=== PATIENT | female | born 1955 | race Two or more races ===

== ENCOUNTER → 2025-03-16 | Outpatient (CLI) | payer MEDICARE, MEDICAID, SELFPAY ==
[2025-03-16 10:24] LABS: Cardiac Risk Estimate 3.1 RATIO (3.7-5.6); Cholesterol 169 mg/dL (132-200); HDL Cholesterol 55 mg/dL (40-60); LDL Cholesterol,Calculated 93 mg/dL (0-130); Triglycerides 107 mg/dL (30-150)
[2025-03-16 11:09] LABS: Glucose Estimated Average 120 mg/dL (80-131); Hemoglobin A1C 5.8 % Hgb (4.8-6.0)
[2025-03-16 11:14] LABS: Hepatitis C Antibody Non Reactive (Non React)
[2025-03-20 06:25] LABS: HIV Ag/Ab, 4th Gen NON-REACTIVE
== END | disposition home or self-care (01) ==
LOC: COPL 08:52
PROVIDERS: PCP Physician Assistant; Referring Provider Physician Assistant; Visit Provider Physician Assistant
DX: Z00.00 Encounter for general adult medical examination without abnormal findings (principal); E55.9 Vitamin D deficiency, unspecified; G43.909 Migraine, unspecified, not intractable, without status migrainosus; R42 Dizziness and giddiness; R73.03 Prediabetes; Z11.59 Encounter for screening for other viral diseases
CPT/HCPCS: 36415; 80061; 83036; 86803; 87389

== ENCOUNTER 2025-03-31 15:39 | Emergency (ER) | payer MEDICARE, MEDICAID, SELFPAY ==
--- NOTE | 2025-03-31 15:45 | EKG_ITS ---
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
[2025-03-31 16:04] VITALS: BP 145/87; PULSE 81; RESP 18; TEMP 37.1; O2SAT 97
--- NOTE | 2025-03-31 16:04 | XR_ITS ---
Examination: CT brain head without contrast. 2-D sagittal coronal reconstructions Date and time of exam: 03/31/2025 at 4:51 p.m. CTDI: vol (mGy): 47 point DLP: (mGycm): 960 Technique: Multiple CT axial sections of the brain have been obtained, 5 mm slice thickness. Contrast has not been administered. 2-D sagittal, coronal reconstructions have been obtained Low dose protocols were performed. One or more of the following dose reduction techniques were used; automated exposure control, adjustment of the mA and/or KV according to patient size, use of iterative reconstruction technique. 2 INDICATION: Headache and dizziness Findings: There is mild enlargement of the ventricular system, which is within normal limits given the patient's age of 70 years. The cortical sulci are essentially normal given her age. There is major very extensive decreased attenuation involving all of the periventricular and subcortical white matter there is very prominent atherosclerotic calcification in the internal carotid arteries in the region of the cavernous sinus. There is major enlargement of the sella turcica which measures 18 mm in diameter. However the sella turcica appears empty, pituitary gland is not visualized. It is probably distended with CSF. Impression: 1 there is widespread very significant abnormal decreased attenuation involving all of the periventricular and subcortical white matter. There is also heavy carotid artery calcification this is certainly a chronic condition, the ventricles are only mildly prominent in size and are essentially normal for the patient's age there is mild cortical atrophy overlying the frontal lobes. 2 there is major abnormal dilatation enlargement of the sella turcica but it is filled with CSF, pituitary gland is not visible at all 3. No other abnormalities are seen 4 there is a wide differential list of possible diagnoses producing chronic extensive white matter disease. An MRI of the brain is suggested both to further evaluate the markedly enlarged sella turcica, and these abnormalities in the cerebral white matter. Given the significant carotid artery calcification, this may be related to chronic atherosclerotic disease
--- NOTE | 2025-03-31 16:04 | PD.EDRME ---
Rapid Medical Screening Exam RME Arrival date/time: 03/31/25 15:39 70-year-old female with medical history significant for dizziness as well as anxiety presents to the emergency department for complaints of dizziness Vital signs reviewed by provider: Yes Exam: On exam well-appearing does not appear ill or toxic patient does appear mildly anxious Clinical Impression: Lab work imaging obtained
[2025-03-31 17:07] LABS: Basophils # (Auto) 0.1 Thou/mm3 (0.0-0.2); Basophils % (Auto) 1 % (0-2.5); Eosinophils # (Auto) 0.1 Thou/mm3 (0.0-0.5); Eosinophils % (Auto) 1 % (0-10); Hematocrit 41.0 % (36.0-46.0); Hemoglobin 13.9 g/dL (12.0-16.0); Immature Granulocytes Auto 0.02 Thou/mm3 (0.00-0.00); Lymphocytes # (Auto) 1.7 Thou/mm3 (1.0-4.8); Lymphocytes % (Auto) 23 % (10-50); Mean Corpuscular HGB Conc 33.9 g/dl (31.0-37.0); Mean Corpuscular Hemoglobin 30.5 pg (25.0-35.0); Mean Corpuscular Volume 90 fL (80-100); Monocytes # (Auto) 0.5 Thou/mm3 (0.0-0.8); Monocytes % (Auto) 6 % (0-12); Neutrophils # (Auto) 5.0 Thou/mm3 (1.8-7.7); Neutrophils % (Auto) 69 % (37-80); Nucleated Red Blood Cell # 0.00 Thou/mm3 (0.00-0.00); Nucleated Red Blood Cell % 0 /100 WBC (0); Platelet Count 308 Thou/mm3 (140-440); RDW Standard Deviation 42.9 fL (36.4-46.3); Red Blood Count 4.55 Miln/mm3 (4.00-5.20); White Blood Count 7.3 Thou/mm3 (3.6-11.0)
[2025-03-31 17:23] LABS: INR 1.0 (0.9-1.3); Partial Thromboplastin Time 29.1 Seconds (22.0-36.0); Prothrombin Time 10.5 Seconds (9.0-12.2)
[2025-03-31 17:27] LABS: B-Type Natriuretic Peptide 35 pg/mL (0-100)
[2025-03-31 17:31] LABS: Alanine Aminotransferase 18 U/L (10-49); Albumin, Serum 4.5 gm/dL (3.4-4.8); Albumin/Globulin Ratio 1.4 (1.2-2.2); Alkaline Phosphatase 92 U/L (46-116); Anion Gap 10 (7-16); Aspartate Amino Transferase 18 U/L (0-34); BUN/Creatinine Ratio 15 Ratio (12-20); Bilirubin,Total 0.7 mg/dL (0.3-1.2); Blood Urea Nitrogen 9 mg/dL (9-23); Calcium 9.3 mg/dL (8.3-10.6); Calcium (Corrected) 9.3 mg/dL (8.5-10.1); Carbon Dioxide 24.6 mMol/L (20.0-31.0); Chloride 109 mMol/L (98-107); Creatinine (Component) 0.6 mg/dL (0.6-1.3); Free T4 (Free Thyroxine) 1.24 ng/dL (0.89-1.76); Globulin 3.2 gm/dL (2.3-3.5); Glucose 105 mg/dL (74-106); Magnesium 2.0 mg/dL (1.6-2.6); Osmolality,Calculated 285 (275-295); Potassium 3.9 mMol/L (3.4-5.1); Sodium 144 mMol/L (136-145); Thyroid Stimulating Hormone 3.44 uIU/mL (0.55-4.78); Total Protein 7.7 gm/dL (5.7-8.2); Troponin I < 0.020 ng/mL (0.0-0.045); eGFR > 60 See Note
--- NOTE | 2025-03-31 19:42 | PD.EDARRY ---
ED Arrhythmia Palp. RME/HPI General Stated Complaint: BODY SHAKY, CHEST PAIN, RAPID HR Time Seen by Provider: 03/31/25 16:29 Arrival date/time: 03/31/25 15:39 RME / HPI RME / HPI narrative: 03/31/25 15:39 70-year-old female with medical history significant for dizziness as well as anxiety presents to the emergency department for complaints of dizziness See [facility] for Dr. Davis's HPI Documentation. Exam: On exam well-appearing does not appear ill or toxic patient does appear mildly anxious Impression: Lab work imaging obtained Related Data Previous Rx's ?Medication ?Instructions ?Recorded ibuprofen 800 mg tablet 800 mg PO TID PRN pain #30 tabs 03/28/23 meclizine 25 mg tablet 25 mg PO BID PRN motion sickness 03/28/23 #30 tabs Allergies Allergy/AdvReac Type Severity Reaction Status Date / Time No Known Allergies Allergy Verified 03/31/25 15:43 Review of Systems Review of Systems Systems Reviewed: All systems reviewed, normal except as documented ED Exam Narrative Physical exam: See [facility] for Dr. Davis's Physical Exam Documentation. Course Quality Measures none Orders Category Date Time Status EKG (ED ONLY) *Do not use* NOW Care 03/31/25 15:45 Completed EKG (ED ONLY) *Do not use* NOW Care 03/31/25 16:[address] head/brain wo con Stat Exams 03/31/25 16:04 Completed EKG (ED Only) Stat Exams 03/31/25 15:45 Draft EKG (ED Only) Stat Exams 03/31/25 16:04 Ordered B-Type Natriuretic Peptide Stat Lab 03/31/25 16:40 Completed CBC Stat Lab 03/31/25 16:40 Completed Comprehensive Metabolic Panel Stat Lab 03/31/25 16:40 Completed Free T4 (Free Thyroxine) Stat Lab 03/31/25 16:40 Completed Magnesium Stat Lab 03/31/25 16:40 Completed Partial Thromboplastin Time Stat Lab 03/31/25 16:40 Completed Prothrombin Time with INR Stat Lab 03/31/25 16:40 Completed TSH [Thyroid Stimulating Hormone] Stat Lab 12/23/25 16:40 Completed Troponin I Stat Lab 03/31/25 16:40 Completed Vital Signs Vital signs: Vital Signs Temperature 98.7 F 03/31/25 16:04 Pulse Rate 81 03/31/25 16:04 Respiratory Rate 18 03/31/25 16:04 Blood Pressure 145/87 H 03/31/25 16:04 Pulse Oximetry (%) 97 03/31/25 16:04 Oxygen Delivery Method Room Air 03/31/25 16:04 Arrhythmia/Palpitations MDM Narrative MDM Narrative:: This section includes all my notes and documentations, including HPI, PE, and ED course. Huang Davis MD HPI: 70 y/o female presents with headache and palpitations x 2 days. No other complaints. ROS: All negative except as documented in HPI. Physical Exam: General: Alert and oriented. No acute distress when remaining still. Eyes: Conjunctivae and lids clear. ENT: No nasal congestion. Neck: Supple. Heart: RRR. Lungs: No respiratory distress. Good air movement. No rhonchi, wheezing, rales. Abdomen: Soft and nontender. Normal bowel sounds. No distension. No rebound or guarding. Back: No CVA tenderness. Skin: Warm and dry. Neuro: Alert and oriented X 3. I reviewed all diagnostic test results: My interpretation of the EKG is: My interpretation of the chest x-ray is: My review of the CT report is: Blood tests and urine tests Covid/Influenza At this point, diagnoses include: Treatment here included: Critical care Significant improvement Recommended Not yet done: I discussed the case with our hospitalist. About the presentation and exam and diagnostics and treatments here. And need of further care in the hospital. Will accept the patient. Not yet done: Based on my best medical judgment, made decision no further evaluation or treatment indicated at this time. Patient understands and agrees to the discharge instructions customized and printed, see below. Huang Davis MD Patient data External records reviewed:: [facility] previous records (Reviewed prior ED records from 03/28/23. Patient was seen for Dizziness.) Clinical information provided by:: patient Social determinants that could affect healthcare access:: none Patient has the following chronic illnesses:: None reported. How is presenting disease/condition affected by chronic disease/condition?: no chronic disease Evaluation data The following diagnostics were reviewed and interpreted by me:: lab results, radiology exam(s) and EKG tracing(s) Lab and/or radiology exams considered but not ordered:: None Medications / Prescriptions Medications or Prescriptions considered but not ordered:: None Diagnosis Differential diagnosis arrhythmia/palpitations: palpitations, anxiety, artial fibrillation, artial flutter, ventricular premature beats and other (Tension Headache, Anxiety Disorder, Migraine ) Discharge Plan Prescriptions/Referrals Prescriptions/Med Rec: No Action meclizine 25 mg tablet 25 mg PO BID PRN (Reason: motion sickness) Qty: 30 0RF ibuprofen 800 mg tablet 800 mg PO TID PRN (Reason: pain) Qty: 30 0RF Referrals: Jonathan ([facility])Allison PA-C [Primary Care Provider] - In 1 week Patient/Caregiver Discharge Instructions Print Language: Georgian
--- NOTE | 2025-03-31 19:46 | EDNOTE_ITS ---
ED Headache RME/HPI General Stated Complaint: BODY SHAKY, CHEST PAIN, RAPID HR Time Seen by Provider: 03/31/25 16:29 Arrival date/time: 03/31/25 15:39 RME / HPI RME / HPI Narrative: 03/31/25 15:39 70-year-old female with medical history significant for dizziness as well as anxiety presents to the emergency department for complaints of dizziness See [facility] for Dr. Davis's HPI Documentation. Exam: On exam well-appearing does not appear ill or toxic patient does appear mildly anxious Impression: Lab work imaging obtained Related Data Previous Rx's ?Medication ?Instructions ?Recorded ibuprofen 800 mg tablet 800 mg PO TID PRN pain #30 t abs 03/28/23 meclizine 25 mg tablet 25 mg PO BID PRN motion sick ness 03/28/23 #30 tabs alprazolam 0.5 mg tablet (Xanax) 0.5 mg PO BID PRN anx iety #20 tabs 03/31/25 Allergies Allergy/AdvReac Type Severity Reaction Status Date / Time No Known Allergies Allergy Verified 03/31/25 15:43 Review of Systems Review of Systems Systems Reviewed: All systems reviewed, normal except as documented Past Medical History Social History SMOKING STATUS: Never smoker ED Exam Narrative Physical exam: See [facility] for Dr. Davis's Physical Exam Documentation. Course Quality Measures none Orders Category Date Time Status EKG (ED ONLY) *Do not use* NOW Care 03/31/25 15:45 Completed EKG (ED ONLY) *Do not use* NOW Care 03/31/25 16:[address] head/brain wo con Stat Exams 03/31/25 16:04 Completed EKG (ED Only) Stat Exams 03/31/25 15:45 Draft EKG (ED Only) Stat Exams 03/31/25 16:04 Ordered B-Type Natriuretic Peptide Stat Lab 03/31/25 16:40 Completed CBC Stat Lab 03/31/25 16:40 Completed Comprehensive Metabolic Panel Stat Lab 03/31/25 16:40 Completed Free T4 (Free Thyroxine) Stat Lab 03/31/25 16:40 Completed Magnesium Stat Lab 03/31/25 16:40 Completed Partial Thromboplastin Time Stat Lab 03/31/25 16:40 Completed Prothrombin Time with INR Stat Lab 03/31/25 16:40 Completed TSH [Thyroid Stimulating Hormone] Stat Lab 03/31/25 16:40 Completed Troponin I Stat Lab 03/31/25 16:40 Completed UA, C/S IF [Urinalysis, C/S if Indicated] Stat Lab 03/31/25 20:12 Completed ALPRazoLAM [Xanax] Med 03/31/25 19:43 Discontinued 0.5 mg PO X1 ONE Vital Signs Vital signs: Vital Signs Temperature 98.7 F 03/31/25 16:04 Pulse Rate 81 03/31/25 16:04 Respiratory Rate 18 03/31/25 16:04 Blood Pressure 145/87 H 03/31/25 16:04 Pulse Oximetry (%) 97 03/31/25 16:04 Oxygen Delivery Method Room Air 03/31/25 16:04 Headache MDM Narrative MDM Narrative:: This section includes all my notes and documentations, including HPI, PE, and ED course. Huang Davis MD HPI: 70 y/o female here with multiple concerns. Has trouble describing all the symptoms. Has trouble pinpointing the onset. Probably for at least a couple weeks. Her main concerns seem to be headache behind the back of her head. And palpitations. Other symptoms can include fear, sweating, chills, shaking, trouble breathing, chest pain, nausea, numbness and tingling in the hands, hot flashes, and feeling faint. Concerned that she may have severe condition, especially in the head. No other complaints. ROS: All negative except as documented in HPI. Physical Exam: General: Alert and oriented. Appears anxious. Eyes: Conjunctivae and lids clear. PERRL. EOMI. ENT: No nasal congestion. Pharynx normal. TM normal bilaterally. Neck: Supple. No carotid bruit. No JVD. Heart: RRR. Lungs: No respiratory distress. Good air movement. No rhonchi, wheezing, rales. Abdomen: Soft and nontender. Normal bowel sounds. No distension. No rebound or guarding. Back: No CVA tenderness. Skin: Warm and dry. Neuro: Alert and oriented X 3. Cranial nerves II to XII grossly normal. No peripheral motor deficits. I reviewed all diagnostic test results: My interpretation of the EKG is: Sinus rhythm (76 bpm) with nonspecific ST-T changes. My review of the Head/Brain CT report is: There is widespread very significant abnormal decreased attenuation involving all of the periventricular and subcortical white matter. There is also heavy carotid artery calcification this is certainly a chronic condition, the ventricles are only mildly prominent in size and are essentially normal for the patient's age there is mild cortical atrophy overlying the frontal lobes. There is major abnormal dilatation enlargement of the sella turcica but it is filled with CSF, pituitary gland is not visible at all. An MRI of the brain is suggested both to further evaluate the markedly enlarged sella turcica, and these abnormalities in the cerebral white matter. Given the significant carotid artery calcification, this may be related to chronic atherosclerotic disease Blood tests and urine tests are unremarkable. At this point, diagnoses include: Palpitations White matter disease Frequent headaches Anxiety Treatment here included: Xanax 0.5 mg PO She felt much better. Recommended MRI in AM. Patient requested going home and returning tomorrow morning for the MRI. Based on my best medical judgment, made decision no further evaluation or treatment indicated at this time. Patient understands and agrees to the discharge instructions customized and printed, see below. Discharge instructions from Dr. Davis: 1. After extensive evaluation, there is no life-threatening condition. Such as acute stroke or brain tumor or heart attack. 2. Your symptoms may be due to underlying stress or anxiety or nerves. This is fairly common. 3. Take Xanax as needed. Whether this helps or not will be valuable information to your private doctors. 4. Our radiologist read your head CT scan as: There is widespread very significant abnormal decreased attenuation involving all of the periventricular and subcortical white matter. There is also heavy carotid artery calcification this is certainly a chronic condition, the ventricles are only mildly prominent in size and are essentially normal for the patient's age, there is mild cortical atrophy overlying the frontal lobes. There is major abnormal dilatation enlargement of the sella turcica but it is filled with CSF, pituitary gland is not visible at all. There is a wide differential list of possible diagnoses producing chronic extensive white matter disease. An MRI of the brain is suggested both to further evaluate the markedly enlarged sella turcica, and these abnormalities in the cerebral white matter. Given the significant carotid artery calcification, this may be related to chronic atherosclerotic disease. 5. Since you elected to return to the ER tomorrow morning for the MRI (instead of staying here in the ER until tomorrow morning for the MRI), you are being discharged. Return here tomorrow at 8 AM. And register again in the ER. Tell them you are here for MRI and to review my notes. 6. Seek immediate medical care with worsening or with any concerns. Huang Davis MD Patient data External records reviewed:: [facility] previous records (Reviewed prior ED records from 03/28/23. Patient was seen for Dizziness.) Clinical information provided by:: patient Social determinants that could affect healthcare access:: none Patient has the following chronic illnesses:: None reported. How is presenting disease/condition affected by chronic disease/condition?: no chronic disease Evaluation data The following diagnostics were reviewed and interpreted by me:: lab results, radiology exam(s) and EKG tracing(s) (My interpretation of the EKG is: Sinus rhythm (76 bpm) with nonspecific ST-T changes. Huang Davis MD) Lab and/or radiology exams considered but not ordered:: None Interpretation Summary: I reviewed all diagnostic test results: My interpretation of the EKG is: Sinus rhythm (76 bpm) with nonspecific ST-T changes. My review of the Head/Brain CT report is: There is widespread very significant abnormal decreased attenuation involving all of the periventricular and subcortical white matter. There is also heavy carotid artery calcification this is certainly a chronic condition, the ventricles are only mildly prominent in size and are essentially normal for the patient's age there is mild cortical atrophy overlying the frontal lobes. There is major abnormal dilatation enlargement of the sella turcica but it is filled with CSF, pituitary gland is not visible at all. An MRI of the brain is suggested both to further evaluate the markedly enlarged sella turcica, and these abnormalities in the cerebral white matter. Given the significant carotid artery calcification, this may be related to chronic atherosclerotic disease Blood tests and urine tests are unremarkable. Medications / Prescriptions Medications or Prescriptions considered but not ordered:: None Medication administrations:: Medication Administration History Discontinued Medications Alprazolam (Alprazolam 0.25 Mg Tablet) 0.5 mg PO X1 ONE Stop: 03/31/25 19:44 Last Admin: 03/31/25 19:57 Dose: 0.5 mg Documented By: SEBASTIAN Xanax 0.5 mg PO Consultations Consultation(s) initiated? (list below): No Diagnosis Differential diagnosis headache: migraine, tension headache, subarachnoid hemorrhage, headache, sinusitis and other (Anxiety) Most likely diagnosis given after review of the tests above:: Palpitations White matter disease Frequent headaches Anxiety Admission Indicated Admission indicated?: not indicated Explain why admission is indicated or not indicated:: With significant improvement and no condition needing emergent intervention, there was no indication for admission. Admission Request Was there a request for admission?: No Disposition Plan Disposition Plan: Discharge Discharge Attestation Discharge Attestation: The patient and all family members were given an opportunity to ask questions and understood the discharge instructions. Discharge instructions specifically effects, indications for sooner follow up or return to the emergency department, and the expected course of current diagnosis. Patient condition: Stable Discharge Plan Plan Patient Disposition: HOME (Self Care) Patient condition on transfer: Stable Prescriptions/Referrals Prescriptions/Med Rec: New alprazolam [Xanax] 0.5 mg tablet 0.5 mg PO BID PRN (Reason: anxiety) Qty: 20 0RF No Action meclizine 25 mg tablet 25 mg PO BID PRN (Reason: motion sickness) Qty: 30 0RF ibuprofen 800 mg tablet 800 mg PO TID PRN (Reason: pain) Qty: 30 0RF Referrals: Jonathan ([facility]),LE Cooper [Primary Care Provider] - In 1 week Problem List Clinical Impression: Palpitations, White matter disease, Frequent headaches Patient/Caregiver Discharge Instructions Discharge Activity: activity as tolerated Education Materials: ED Anxiety Reaction, ED Panic Attack Additional Instructions: Instrucciones de leobardo del Dr. Davis: 1. Tras doug evaluaci?n exhaustiva, no se detect? ninguna afecci?n que ponga en peligro la mak, james un accidente cerebrovascular natividad, un tumor cerebral o un infarto de miocardio. 2. Vonnie s?ntomas pueden deberse a estr?s, ansiedad o nerviosismo. Lee es bastante com?n. 3. Winnie Xanax seg?n sea necesario. La informaci?n sobre si le resulta ?til o no ser? valiosa para vonnie m?dicos de cabecera. 4. El radi?logo interpret? niño tomograf?a computarizada de sabrina de la siguiente manera: Existe doug disminuci?n de la atenuaci?n anormal generalizada y muy significativa que afecta a toda la sustancia jeet periventricular y subcortical. Tambi?n se observa doug calcificaci?n importante de la arteria car?tida, lo que sin becky es doug afecci?n cr?collins. Los ventr?culos presentan un rosales?o ligeramente prominente y son esencialmente normales para la edad del paciente. Hay doug atrofia cortical leve en los l?bulos frontales. Existe doug dilataci?n y agrandamiento anormal importante de la silla turca, zachary est? llena de l?quido cefalorraqu?trish; la gl?ndula pituitaria no es visible. Existe doug amplia lista de posibles diagn?sticos diferenciales que pueden causar doug enfermedad cr?collins extensa de la sustancia jeet. Se sugiere doug resonancia magn?citlali cerebral para evaluar con mayor detalle la silla turca notablemente agrandada y estas anomal?as en la sustancia jeet cerebral. Luis la importante calcificaci?n de la arteria car?tida, esto podr?a estar relacionado con doug enfermedad ateroscler?citlali cr?collins. 5. Dado que bocanegra decidido regresar a la pierre de urgencias ma?lyndsey por la ma?lyndsey para la resonancia magn?citlali (en lugar de quedarse aqu? en la pierre de urgencias hasta ma?lyndsey por la ma?lyndsey para la resonancia magn?citlali), se le da el leobardo. Regrese aqu? ma?lyndsey a las 8:00 a. m. Reg?strese de nuevo en la pierre de urgencias. D?elizabeth que viene para doug resonancia magn?citlali y que revisen mis notas. 6. Busque atenci?n m?dica inmediata si vonnie s?ntomas empeoran o si tiene alguna inquietud. Discharge instructions from Dr. Davis: 1. After extensive evaluation, there is no life-threatening condition. Such as acute stroke or brain tumor or heart attack. 2. Your symptoms may be due to underlying stress or anxiety or nerves. This is fairly common. 3. Take Xanax as needed. Whether this helps or not will be valuable information to your private doctors. 4. Our radiologist read your head CT scan as: There is widespread very significant abnormal decreased attenuation involving all of the periventricular and subcortical white matter. There is also heavy carotid artery calcification this is certainly a chronic condition, the ventricles are only mildly prominent in size and are essentially normal for the patient's age, there is mild cortical atrophy overlying the frontal lobes. There is major abnormal dilatation enlargement of the sella turcica but it is filled with CSF, pituitary gland is not visible at all. There is a wide differential list of possible diagnoses producing chronic extensive white matter disease. An MRI of the brain is suggested both to further evaluate the markedly enlarged sella turcica, and these abnormalities in the cerebral white matter. Given the significant carotid artery calcification, this may be related to chronic atherosclerotic disease. 5. Since you elected to return to the ER tomorrow morning for the MRI (instead of staying here in the ER until tomorrow morning for the MRI), you are being discharged. Return here tomorrow at 8 AM. And register again in the ER. Tell them you are here for MRI and to review my notes. 6. Seek immediate medical care with worsening or with any concerns. Print Language: Salvadorean Stand Alone Forms: Matilda Award Info., Patient Portal Info Letter
[2025-03-31 20:29] LABS: Collection Type, Urine Clean Catch
[2025-03-31 20:46] LABS: Bilirubin,Urine Negative (Negative); Blood,Urine Negative (Negative); Clarity,Urine Clear (Clear/Hazy); Color,Urine Lt-Yellow (Lt Yel-Yel); Culture Indicated,Urine Not Indicated; Glucose, Urine Negative (Negative); Hyaline Casts,Urine < 1 /hpf (0-1); Ketones,Urine Negative (Negative); Leukocyte Esterase,Urine Positive (Negative); Nitrite,Urine Negative (Negative); PH,Urine 6.0 (5.0-7.0); Protein,Urine Negative (Neg - Trace); RBC,Urine 2 /hpf (0-3); Specific Gravity,Urine 1.018 (1.001-1.035); Squamous Epithelial Cell,Urine < 1 /hpf (0-5); Urobilinogen,Urine Negative mg/dL (0.0-1.0); WBC,Urine 4 /hpf (0-5)
[2025-03-31 22:01] VITALS: BP 142/78; PULSE 98; RESP 18; TEMP 37.1; O2SAT 98
== END 2025-03-31 22:02 | disposition home or self-care (01) ==
PROVIDERS: Nurse Practitioner Primary Care; Emergency Provider Emergency Medicine; PCP Physician Assistant
DX: R51.9 Headache, unspecified (principal); R90.82 White matter disease, unspecified; R00.2 Palpitations
CPT/HCPCS: 36415; 70450; 80053; 81001; 83735; 83880; 84439; 84443; 84484; 85025; 85610; 85730; 93005; 99283; A9270

== ENCOUNTER 2025-04-03 09:35 | Emergency (ER) | payer OTHER, MEDICAID, SELFPAY ==
--- NOTE | 2025-04-03 | XR_ITS ---
Examination: MRI brain without intravenous contrast. Date and time of exam: April 03, 2025, 1206 hours INDICATIONS: Dizziness lightheadedness beginning 3 days ago Technique: Multiple axial and sagittal images of the brain obtained. Siemens high-resolution 1.5 Leonor short bore scanners utilized. Sagittal sections, T1-weighted, TR 500, TE 14, are performed. Axial sections proton-density and T2-weighted have been obtained. Inversion recovery axial images, TR 9, 260, TE 111, TI 2500. Diffusion weighted images, axial sections, TR 4800, TE 128, B value 1000 Axial sections, ADC map, TR 4800, TE 128 Findings: Enlarged sella, empty sella syndrome The optic chiasm and infundibular are not remarkable. Prepontine and interpeduncular cisterns are not enlarged. There is no localized enlargement of the medulla or chacha. Fourth ventricle and cerebellar tonsils appear normal in position. No subacute area of hemorrhage density is seen. Mass in the cerebellopontine angle region is not evident. Globes symmetrical. Orbital musculature including medial lateral rectus muscles do not exhibit abnormality. Diffusion-weighted images demonstrate no focus of restricted diffusion. Increased white matter signal prominent Mass effect upon the ventricular system is not identified. Impression: Negative for acute hemorrhage mass effect or midline shift No acute infarct Prominent chronic microvascular white matter change
[2025-04-03 09:35] VITALS: BMI 32.5
--- NOTE | 2025-04-03 09:45 | PD.EDRME ---
Rapid Medical Screening Exam RME Arrival date/time: 04/03/25 09:35 70-year-old female with no known medical history presents to the emergency room with a chief complaint of 10 out of 10 headache, dizziness, lightheadedness x 3 days. Patient was seen here on 04/01/2025 and was instructed to return to the emergency room for an MRI of her brain I have greeted and performed a focused initial assessment of this patient. A comprehensive ED assessment and evaluation of the patient, analysis of all test results, and completion of the medical decision making process will be conducted by additional ED providers. Chief Complaint: Headache Time Seen by Provider: 04/03/25 09:36 Vital signs reviewed by provider: Yes Exam: GCS 15, alert and oriented x 3 Clear bilateral lung sounds Clinical Impression: Headache
[2025-04-03 09:48] VITALS: BP 161/88; PULSE 111; RESP 17; TEMP 36.9; O2SAT 97; BMI 31.1
[2025-04-03 10:14] LABS: Basophils # (Auto) 0.1 Thou/mm3 (0.0-0.2); Basophils % (Auto) 1 % (0-2.5); Eosinophils # (Auto) 0.1 Thou/mm3 (0.0-0.5); Eosinophils % (Auto) 1 % (0-10); Hematocrit 42.8 % (36.0-46.0); Hemoglobin 14.6 g/dL (12.0-16.0); Immature Granulocytes Auto 0.01 Thou/mm3 (0.00-0.00); Lymphocytes # (Auto) 1.7 Thou/mm3 (1.0-4.8); Lymphocytes % (Auto) 27 % (10-50); Mean Corpuscular HGB Conc 34.1 g/dl (31.0-37.0); Mean Corpuscular Hemoglobin 31.2 pg (25.0-35.0); Mean Corpuscular Volume 92 fL (80-100); Monocytes # (Auto) 0.3 Thou/mm3 (0.0-0.8); Monocytes % (Auto) 5 % (0-12); Neutrophils # (Auto) 4.1 Thou/mm3 (1.8-7.7); Neutrophils % (Auto) 66 % (37-80); Nucleated Red Blood Cell # 0.00 Thou/mm3 (0.00-0.00); Nucleated Red Blood Cell % 0 /100 WBC (0); Platelet Count 281 Thou/mm3 (140-440); RDW Standard Deviation 42.7 fL (36.4-46.3); Red Blood Count 4.68 Miln/mm3 (4.00-5.20); White Blood Count 6.3 Thou/mm3 (3.6-11.0)
[2025-04-03 10:22] LABS: INR 1.0 (0.9-1.3); Partial Thromboplastin Time 29.1 Seconds (22.0-36.0); Prothrombin Time 10.6 Seconds (9.0-12.2)
[2025-04-03 10:23] LABS: Alanine Aminotransferase 17 U/L (10-49); Albumin, Serum 4.6 gm/dL (3.4-4.8); Albumin/Globulin Ratio 1.5 (1.2-2.2); Alkaline Phosphatase 95 U/L (46-116); Anion Gap 10 (7-16); Aspartate Amino Transferase 18 U/L (0-34); BUN/Creatinine Ratio 14 Ratio (12-20); Bilirubin,Total 0.9 mg/dL (0.3-1.2); Blood Urea Nitrogen 10 mg/dL (9-23); Calcium 9.3 mg/dL (8.3-10.6); Calcium (Corrected) 9.3 mg/dL (8.5-10.1); Carbon Dioxide 24.9 mMol/L (20.0-31.0); Chloride 107 mMol/L (98-107); Creatinine (Component) 0.7 mg/dL (0.6-1.3); Estimated Creatinine Clearance 79.8 mL/min (>60); Globulin 3.0 gm/dL (2.3-3.5); Glucose 127 mg/dL (74-106); Osmolality,Calculated 284 (275-295); Potassium 3.9 mMol/L (3.4-5.1); Sodium 142 mMol/L (136-145); Total Protein 7.6 gm/dL (5.7-8.2); eGFR > 60 See Note
--- NOTE | 2025-04-03 14:55 | PD.EDHA ---
ED Headache RME/HPI General Chief Complaint: Headache Stated Complaint: TOLD TO COME BACK FOR MRI WORSENING HEAD ACHE Time Seen by Provider: 04/03/25 09:36 Arrival date/time: 04/03/25 09:35 71-year-old female patient with history of chronic headache, seen by local neurologist already, already started on multiple migraine medication, still having headache, was advised to return to emergency room for MRI of the brain. According to the family's patient's been having headache for several years comes and goes. No vomiting no fever no head trauma no upper or lower extremity weakness no slurred speech patient is ambulatory. RME / HPI RME / HPI Narrative: 04/03/25 09:35 70-year-old female with no known medical history presents to the emergency room with a chief complaint of 10 out of 10 headache, dizziness, lightheadedness x 3 days. Patient was seen here on 04/01/2025 and was instructed to return to the emergency room for an MRI of her brain I have greeted and performed a focused initial assessment of this patient. A comprehensive ED assessment and evaluation of the patient, analysis of all test results, and completion of the medical decision making process will be conducted by additional ED providers. Exam: GCS 15, alert and oriented x 3 Clear bilateral lung sounds Impression: Headache Related Data Previous Rx's ?Medication ?Instructions ?Recorded ibuprofen 800 mg tablet 800 mg PO TID PRN pain #30 tabs 03/28/23 meclizine 25 mg tablet 25 mg PO BID PRN motion sickness 03/28/23 #30 tabs alprazolam 0.5 mg tablet (Xanax) 0.5 mg PO BID PRN anxiety #20 tabs 03/31/25 Allergies Allergy/AdvReac Type Severity Reaction Status Date / Time No Known Allergies Allergy Verified 04/03/25 09:38 Review of Systems Review of Systems Narrative Review of Systems: Review of system reviewed and within normal limits except mentioned in HPI ED Exam Narrative Physical exam: VITAL SIGNS: Reviewed. GENERAL APPEARANCE: Alert and interactive, follows commands, no acute distress, HEAD AND FACE: Non-traumatic. ENT: PERRL, pink conjunctivitis, eyelid no trauma, Mucous membrane moist. NECK: Supple, nontender, no nuchal rigidity. CHEST: No tenderness, no crepitus, no paradoxical movement, no retractions. LUNGS: Clear, well ventilated, symmetric, no rales, no wheezing, no ronchi, no stridor, good breath sounds bilaterally. HEART: Regular rate, regular rhythm, no murmur, no gallops. ABDOMEN: Soft, positive bowel sounds, nondistended, no guarding, nontender, no rebound, no masses, RECTAL: Deferred. GENITAL: Deferred. NEUROLOGICAL: Gross motor function intact sensory function intact, Appropriate for age. MUSCULOSKELETAL: low back nontender, full range of motion. EXTREMITIES: Nontender, full range of motion. SKIN: Color pink, dry, no rash, no lacerations, no abrasions, no contusions. LYMPHATICS: Deferred. Course Quality Measures none Orders Category Date Time Status MRI Screening NOW Care 04/03/25 09:45 Active MR head/brain wo con Stat Exams 04/03/25 Completed CBC Stat Lab 04/03/25 09:57 Completed CMP [Comprehensive Metabolic Panel] Stat Lab 04/03/25 09:57 Completed PT [Prothrombin Time with INR] Stat Lab 04/03/25 09:57 Completed PTT [Partial Thromboplastin Time] Stat Lab 04/03/25 09:57 Completed Vital Signs Vital signs: Vital Signs Temperature 98.5 F 04/03/25 09:48 Pulse Rate 111 H 04/03/25 09:48 Respiratory Rate 17 04/03/25 09:48 Blood Pressure 161/88 H 04/03/25 09:48 Pulse Oximetry (%) 97 04/03/25 09:48 Oxygen Delivery Method Room Air 04/03/25 09:48 Headache MDM Narrative MDM Narrative:: 71-year-old female patient with history of chronic headache, seen by local neurologist already, already started on multiple migraine medication, still having headache, was advised to return to emergency room for MRI of the brain. According to the family's patient's been having headache for several years comes and goes. No vomiting no fever no head trauma no upper or lower extremity weakness no slurred speech patient is ambulatory. MRI of the brain showed 71-year-old female patient with history of chronic headache, seen by local neurologist already, already started on multiple migraine medication, still having headache, was advised to return to emergency room for MRI of the brain. According to the family's patient's been having headache for several years comes and goes. No vomiting no fever no head trauma no upper or lower extremity weakness no slurred speech patient is ambulatory. Results discussed with the patient and family. Patient family told me that she had an appointment with neurologist in [place] on October 08. She is stable for discharge home I told her to continue taking the medication that was prescribed by her her neurologist for migraine Patient data External records reviewed:: None Clinical information provided by:: patient Social determinants that could affect healthcare access:: none Patient has the following chronic illnesses:: None How is presenting disease/condition affected by chronic disease/condition?: no chronic disease Evaluation data The following diagnostics were reviewed and interpreted by me:: radiology exam(s) Lab and/or radiology exams considered but not ordered:: None Interpretation Summary: See above Medications / Prescriptions Medications or Prescriptions considered but not ordered:: None Medication administrations:: None Consultations Consultation(s) initiated? (list below): No Diagnosis Differential diagnosis headache: migraine, tension headache and headache Most likely diagnosis given after review of the tests above:: Chronic migraine headache Admission Indicated Admission indicated?: not indicated Admission Request Was there a request for admission?: No Disposition Plan Disposition Plan: Discharge Discharge Attestation Discharge Attestation: The patient and all family members were given an opportunity to ask questions and understood the discharge instructions. Discharge instructions specifically effects, indications for sooner follow up or return to the emergency department, and the expected course of current diagnosis. Patient condition: Stable Discharge Plan Plan Patient Disposition: HOME (Self Care) Discharge Disposition comment: Stable Prescriptions/Referrals Prescriptions/Med Rec: No Action meclizine 25 mg tablet 25 mg PO BID PRN (Reason: motion sickness) Qty: 30 0RF ibuprofen 800 mg tablet 800 mg PO TID PRN (Reason: pain) Qty: 30 0RF alprazolam [Xanax] 0.5 mg tablet 0.5 mg PO BID PRN (Reason: anxiety) Qty: 20 0RF Referrals: Allison Castillo FNP ([email or web address]) [Primary Care Provider] - In 1 week Problem List Clinical Impression: Headache, migraine Patient/Caregiver Discharge Instructions Discharge Activity: activity as tolerated Education Materials: Headache Migraine Meds Lifestyle Additional Instructions: Thank you for the opportunity for serving you today. You are stable for discharged . You are advised to: Follow-up with your PCP in 1 to 2 days Return to ED for worsening of symptoms Increase oral fluids Follow-up with your neurologist appointment next month Print Language: Japanese Stand Alone Forms: Matilda Award Info., Patient Portal Info Letter PA/TANK FARM OPERATOR Supervising Physician PA/TANK FARM OPERATOR Supervising Physician: MD Bob
[2025-04-03 15:01] VITALS: BP 127/78; PULSE 72; RESP 18; TEMP 36.6; O2SAT 97
== END 2025-04-03 15:05 | disposition home or self-care (01) ==
PROVIDERS: Nurse Practitioner Family; Emergency Provider Emergency Medicine; PCP Nurse Practitioner Primary Care
DX: G43.909 Migraine, unspecified, not intractable, without status migrainosus (principal)
CPT/HCPCS: 36415; 70551; 80053; 85025; 85610; 85730; 99283